=== PATIENT | male | born 2000 | race Caucasian/White ===

== ENCOUNTER 2019-01-14 13:48 | Emergency (ER) | payer OTHER ==
[~2019-01-14] VITALS: Wt 69.0 kg
[~2019-01-14 13:48] MED LIST: [UNRECOGNIZED DRUG - CODE]
[2019-01-14 13:56] VITALS: BP 144/65; PULSE 60; RESP 18
[2019-01-14] MEDS ORDERED: DIPHENHYDRAMINE 25 MG CAP PO ONE (16:00)
[2019-01-14] MEDS ORDERED: BEN25 PO (16:57)
[2019-01-14] MEDS ORDERED: AMOX500C2 PO (16:57)
--- NOTE | 2019-01-14 16:59 | ERD ---
ER Documentation Chief Complaint Chief Complaint GEN RASH NO SOB. ONSET ABOUT 2 DAYS. HPI 18-year-old male presents with a rash on the face and trunk for last 2 days. He also has a sore throat. The rash is actually improved from his face and now is mostly on his trunk. Denies cough, vomiting, abdominal pain, urinary complaints. ROS All systems reviewed and are negative except as per history of present illness. Medications Home Meds Active Scripts Diphenhydramine Hcl* (Benadryl*) 25 Mg Cap, 25 MG PO Q6, #20 CAP Prov:MARITA DIAZ MD 01/14/19 Amoxicillin* (Amoxicillin*) 500 Mg Cap, 500 MG PO TID for 10 Days, CAP Prov:MARITA DIAZ MD 01/14/19 Reported Medications Bismuth Subsalicylate (Pepto-Bismol) 262 Mg Tab.chew 11/05/09 Allergies Allergies: Coded Allergies: No Known Drug Allergies (Verified Allergy, Mild, 11/05/09) PMhx/Soc History of Surgery: Yes (APPENDECTOMY,RIGHT ARM) Anesthesia Reaction: No Hx Neurological Disorder: No Hx Respiratory Disorders: No Hx Cardiac Disorders: No Hx Miscellaneous Medical Probl: No Hx Alcohol Use: No Hx Substance Use: No Hx Tobacco Use: No FmHx Family History: No diabetes, No coronary disease, No other Physical Exam Vitals Vital Signs Date Temp Pulse Resp B/P (MAP) Pulse Ox O2 O2 Flow FiO2 Time Delivery Rate 01/14/19 98.0 60 18 144/65 98 13:56 (91) Physical Exam Const: No acute distress Head: Atraumatic Eyes: Normal Conjunctiva ENT: Normal External Ears, Nose and Mouth. Erythema in the posterior pharynx without exudate. Uvula midline and tonsils normal size. No lymphadenitis. Neck: Full range of motion. No meningismus. Resp: Clear to auscultation bilaterally Cardio: Regular rate and rhythm, no murmurs Abd: Soft, non tender, non distended. Normal bowel sounds Skin: No petechiae or purpura. Fine sandpaper erythematous blanching rash on the trunk and abdomen. Back: No midline or flank tenderness Ext: No cyanosis, or edema Neur: Awake and alert Psych: Normal Mood and Affect Results 24 hrs Current Medications Medications Dose Sig/Viridiana Start Time Status Last (Trade) Ordered Route PRN Stop Time Admin Dose Reason Admin 25 mg ONCE ONCE 01/14/19 DC 01/14/19 Diphenhydrami PO 16:00 15:58 ne HCl 01/14/19 16:01 (Benadryl) Procedures/MDM Patient was given Benadryl 25 mg by mouth. Rapid strep is negative. Patient presents with sore throat and a rash suspicious for scarlet fever. There is no signs of cellulitis, purpura, life-threatening rashes. We will treat empirically given signs and symptoms of scarlet fever despite negative strep test. He may have viral rash as well. Denies any new foods or potential allergens the patient does not have a rash which appears to be an allergy. He should return for new or worsening symptoms as directed with primary care doctor. The patient was stable with no new complaints during the ER course. Clinically, there is no current evidence to suggest meningitis, sepsis, acute abdomen, pneumonia, stroke, acute coronary syndrome, pulmonary embolism, aortic dissection or any other emergent condition appearing to require further evaluation or hospitalization. Patient counseled regarding my diagnostic impression and care plan. Prior to discharge all questions answered. Pt agrees with treatment plan and understands strict return precautions. Pt is instructed to follow up with primary care provider within 24-48 hours. Precautionary instructions provided including instructions to return to the ER if not improving or for any worsening or changing symptoms or concerns. Departure Diagnosis: Primary Impression: Rash Condition: Stable Patient Instructions: Dermatitis, Non-Specific, Scarlet Fever (Adult) Referrals: DOCTOR,NOT ON STAFF (PCP) Additional Instructions: Strep test negative although rash appears to be scarlet fever. Will treat despite negative strep test. Recheck for fevers, vomiting, shortness breath, new worsening symptoms. MARITA DIAZ MD Jan 14, 2019 16:59
== END 2019-01-14 17:07 | disposition home or self-care (01) ==
LOC: FTE 13:48
DX: R21 Rash and other nonspecific skin eruption (principal)
CPT/HCPCS: 87880; Z7502; Z7610; 99283